=== PATIENT | male | born 2000 | race Caucasian/White ===

== ENCOUNTER 2020-02-13 18:27 | Emergency (ER) | payer OTHER ==
[~2020-02-13] VITALS: Ht 170.2 cm; Wt 70.0 kg
--- NOTE | 2020-02-13 19:48 | REPVR ---
PROCEDURE INFORMATION: Exam: XR Left Hand Exam date and time: 02/13/2020 6:52 PM Age: 19 years old Clinical indication: Other: Swelling bruising TECHNIQUE: Imaging protocol: XR Left hand. Views: 3 or more views. COMPARISON: No relevant prior studies available. FINDINGS: Bones/joints: There is a small avulsion fracture of the dorsal base of the middle phalanx. On the oblique view, there is a tiny mineralized density adjacent to the 5th PIP joint, and additional an fracture fragment cannot be excluded. The bones are well-mineralized. No hypertrophic arthropathy. Soft tissues: Mild soft tissue swelling of the 5th digit. IMPRESSION: 1. Mild soft tissue swelling of the 5th digit. 2. There is a small avulsion fracture of the dorsal base of the middle phalanx. 3. On the oblique view, there is a tiny mineralized density adjacent to the 5th PIP joint, and an additional fracture fragment cannot be excluded. Electronically signed by: Bill Birch On 02/13/2020 19:48:19 PM
[2020-02-13 20:06] VITALS: BP 146/84
== END 2020-02-13 20:08 | disposition home or self-care (01) ==
LOC: M ED 18:27
DX: S62.656A Nondisplaced fracture of middle phalanx of right little finger, initial encounter for closed fracture (principal); W20.8XXA Other cause of strike by thrown, projected or falling object, initial encounter; W23.0XXA Caught, crushed, jammed, or pinched between moving objects, initial encounter; Y92.096 Garden or yard of other non-institutional residence as the place of occurrence of the external cause; Y93.61 Activity, american tackle football